=== PATIENT | female | born 1940 | race Hispanic/Latino ===

== ENCOUNTER 2019-07-17 16:40 | Inpatient (IN) | payer OTHER ==
[~2019-07-17] VITALS: Ht 149.9 cm; Wt 74.8 kg
[2019-07-17] MEDS ORDERED: FUROSEMIDE 10 MG/ML 2ML VIAL ONE (17:11)
[2019-07-17] MEDS ORDERED: FUROSEMIDE 10 MG/ML 4ML VIAL ONE (17:12)
[2019-07-17 17:14] LABS: BASOPHILS % (AUTO) 0.1 % (0.0-5.0); HEMATOCRIT 36.5 % (36-48); LYMPHOCYTES % (AUTO) 2.6 % (21.0-51.0); MEAN CORPUSCULAR HEMOGLOBIN 27.9 pg (27.0-33.0); MEAN CORPUSCULAR HGB CONC 32.3 g/dL (32.0-36.0); MEAN CORPUSCULAR VOLUME 86.3 fL (79-99); MONOCYTES % (AUTO) 7.2 % (3.0-13.0); NEUTROPHILS % (AUTO) 89.6 % (40.0-77.0); PLATELET COUNT (AUTO) 327 K/uL (130-400); RED BLOOD CELL COUNT(AUTO) 4.23 MIL/uL (4.00-5.50); RED CELL DISTRIBUTION WIDTH 15.8 % (11.0-15.5); WHITE BLOOD COUNT (AUTO) 18.7 K/uL (4.8-10.8)
[2019-07-17 17:28] LABS: CREATININE 0.8 mg/dL (0.5-1.5); POTASSIUM 4.6 mmol/L (3.5-5.1)
[2019-07-17 17:32] LABS: ALBUMIN 2.4 g/dL (3.5-5.0); BILIRUBIN,TOTAL 0.3 mg/dL (0.2-1.0); TOTAL PROTEIN, SERUM 7.2 g/dL (6.0-8.3)
[2019-07-17 18:59] LABS: B-TYPE NATRIURETIC PEPTIDE 79 pg/mL (0-100)
[2019-07-17] MEDS ORDERED: LORAZEPAM 2 MG/ML 1 ML VIAL ONE (19:40)
[2019-07-17] MEDS ORDERED: IOHEXOL-350 75 ML VIAL IV ONE (20:34)
[2019-07-17 21:10] LABS: APPEARANCE,URINE SL CLOUDY (CLEAR); BILIRUBIN,URINE NEGATIVE (NEGATIVE); COLOR,URINE YELLOW (YELLOW); GLUCOSE, URINE (UA) >=1000 mg/dL (NEGATIVE); KETONES,URINE NEGATIVE (NEGATIVE); LEUKOCYTE ESTERASE ,URINE NEGATIVE (NEGATIVE); NITRATE,URINE NEGATIVE (NEGATIVE); OCCULT BLOOD,URINE TRACE-INTACT (NEGATIVE); PH,URINE 6.5 (5.0-8.0); PROTEIN,URINE TRACE mg/dL (NEGATIVE); UROBILINOGEN,URINE 0.2 mg/dL (0.2-1.0)
[2019-07-17 21:21] LABS: BACTERIA,URINE Rare /HPF (None Seen); RBC,URINE 0-1 /HPF (0-1); WBC,URINE 0-1 /HPF (0-1)
[2019-07-17 21:22] LABS: SQUAMOUS EPITHELIAL CELL,UR Rare /HPF (0-2)
[2019-07-17] MEDS ORDERED: AZITHROMYCIN 500MG+NS 250ML 250 ML IV ONE (21:29)
[2019-07-17] MEDS ORDERED: CEFTRIAXONE SODIUM 1 GM ONE (21:30)
[2019-07-17] MEDS ORDERED: ONDANSETRON HCL 4 MG/2 ML VIAL IVP PRN (22:45)
--- NOTE | 2019-07-17 23:45 | NUR ---
Admission note: Received pt from ER per stretcher. Looking weak , but responsive. AOX3. Placed in bed comfortably with HOBE. Not in respiratory distress, but continuously attached to O2 at 2LPM via NC as she has tendency to desat once removed from O2. O2Sat at 92% this time. VS checked and recorded. Assessment done. (See CPOE flow chart for full assessment). Oriented to room and used of call light. Policies and procedures explained. Verbalized understanding. Has 2 IV sites: RW #20 g ,SL and LAC #20 g , SL - patent and intact. Has FC # 16 Fr, attached to urobag draining dark caden colored urine. Hooked to TELE at bedside with ST result 100's. Plan of care initiated. Home meds resumed as ordered. Pt meds at bedside. Needs attended and cared for. Monitored and observed for any unusual changes. Distress / discomfort not noted. Reported to AM shift accordingly.
[2019-07-18] VITALS (20 sets, daily range): BP systolic 86–128; BP diastolic 41–56
[2019-07-18] MEDS ORDERED: SERT50TA12 PO (00:06)
[2019-07-18] MEDS ORDERED: DICL50TA9 PO (00:06)
[2019-07-18] MEDS ORDERED: DESL5TAB45 PO (00:06)
[2019-07-18] MEDS ORDERED: LISI2.5T2 PO (00:06)
[2019-07-18] MEDS ORDERED: TRAZ-185 PO (00:06)
[2019-07-18] MEDS ORDERED: CARV6.25 PO (00:06)
[2019-07-18] MEDS ORDERED: DICY10CA13 PO (00:06)
[2019-07-18] MEDS ORDERED: ATOR40TA69 PO (00:06)
[2019-07-18] MEDS ORDERED: ASPI-1146 PO (00:06)
[2019-07-18] MEDS ORDERED: MULT-1250 PO (00:06)
[2019-07-18] MEDS ORDERED: GABA-531 PO (00:06)
[2019-07-18] MEDS ORDERED: EMPA10TA PO (00:06)
[2019-07-18] MEDS: IPRATROPIUM/ALBUTEROL SULFATE 3 ML SOLUTION IH PRN ×4 (00:24→22:41)
[2019-07-18 04:13] LABS: HEMATOCRIT 33.3 % (36-48); MEAN CORPUSCULAR HEMOGLOBIN 28.1 pg (27.0-33.0); MEAN CORPUSCULAR HGB CONC 31.2 g/dL (32.0-36.0); PLATELET COUNT (AUTO) 300 K/uL (130-400); RED CELL DISTRIBUTION WIDTH 15.9 % (11.0-15.5); WHITE BLOOD COUNT (AUTO) 17.1 K/uL (4.8-10.8)
[2019-07-18 04:29] LABS: CREATININE 0.9 mg/dL (0.5-1.5); MAGNESIUM 2.1 mg/dL (1.80-2.40); PHOSPHORUS 5.2 mg/dL (2.5-4.9); POTASSIUM 3.9 mmol/L (3.5-5.1)
[2019-07-18] MEDS: DICYCLOMINE HCL 20 MG TAB PO SCH ×3 (09:00→16:17)
[2019-07-18] MEDS ORDERED: LISINOPRIL 2.5 MG TABLET PO SCH (09:00)
[2019-07-18] MEDS ORDERED: CARVEDILOL 6.25 MG TABLET PO SCH (09:00)
[2019-07-18] MEDS: EMPAGLIFLOZIN 10 MG PO SCH (09:00)
[2019-07-18] MEDS ORDERED: CEFTRIAXONE SODIUM 1 GM IVP SCH (09:00)
[2019-07-18] MEDS ORDERED: AZITHROMYCIN 500MG+NS 250ML 250 ML IV SCH (09:00)
[2019-07-18] MEDS: DICLOFENAC SODIUM 50 MG PO SCH (09:00)
[2019-07-18] MEDS: ACETAMINOPHEN 325 MG TAB PO PRN ×2 (10:42→22:10)
[2019-07-18] MEDS: LORATADINE 10 MG TABLET PO SCH (10:43)
[2019-07-18] MEDS: MULTIVITAMIN WITH MINERALS TABLET PO SCH (10:43)
[2019-07-18] MEDS: SERTRALINE HCL 50 MG TABLET PO SCH (10:45)
[2019-07-18] MEDS: ASPIRIN 81MG TAB.CHEW PO SCH (10:46)
[2019-07-18] MEDS: GABAPENTIN 300 MG CAPSULE PO SCH ×3 (10:59→21:39)
[2019-07-18 11:28] LABS: INR 0.92 (0.85-1.15); PARTIAL THROMBOPLASTIN TIME 26.3 SEC (26.3-35.5)
[2019-07-18] MEDS ORDERED: FUROSEMIDE 10 MG/ML 4ML VIAL IV SCH (12:15)
--- NOTE | 2019-07-18 14:45 | NUR ---
U/S GD PARACENTESIS PROCEDURE PERFORMED BY DR Konrad WALKER. PUNCTURE SITE RLQ AND PATIENT TOLERATED PROCEDURE WELL. TOTAL REMOVED 2 LITERS OF DARK ABMER COLORED FLUID. END OF PROCEDURE AT 1425. CATHETER REMOVED AND DRESSING APPLIED. NO BLEEDING NOTED. REPORT GIVEN TO Zeferino LANDERS RN AND PATIENT TRANSPORTED TO [facility] VIA BED AT 1445. AAO X3 WITH NO C/O PAIN. SPECIMEN SENT TO LAB.
--- NOTE | 2019-07-18 14:50 | NUR ---
RECEIVED PT PT LETHARGIC YET AROUSABLE TO VERBAL STIMULI. AAO. PT WITH HYPOTENSION BP=77/44 HR=84. @1500, CALLED NABIL BEE. ORDERS TO ADMINSITER ALBUMIN X3 DOSES Q8RS. @1516 NOTIFIED COLLEEN OF ALBUMIN ORDER NOT MEET CRITERIA PARACENTESIS WITH 2LITERS REMOVED. CONTINUED TO MONITOR. BP MAINTAINED SBP=98/55 WITH LOW SPB=87 @1617, NOTIFIED OF PATIENT 02 SAT DROPPING WHEN DEEP SLEEP OF 84% AND WHEN AROUSED 02 SAT=95% NEW ORDERS RECEIVED AND CARRIED OUT. PT PLACED ON BIPAP AFTER ABG RESULTS. PT TRANSFERRED TO ICU @1700 REPORT GIVEN TO NEL LUGO PRIOR TO TRANSFER, VERBALIZED UNDERSTANDING. PT CONTINUED TO BE LETHARGIC YET AROUSABLE. Addendum: 07/18/19 at 2009 by MIRTA LANDERS RN *RECEIVED PATIENT POST PARACENTESIS
--- NOTE | 2019-07-18 15:27 | NUR ---
RD NOTIFICATION PT ADMITTED FOR CAP. HX OF DM, CHF. DIET ORDER HELD PENDING PROCEDURE. RECOMMEND RESUME DIET MEDICALLY FEASIBLE. RECOMMEND 500MG VITAMIN C BID. RD TO FOLLOW UP FOR NUTRITION EDUCATION. PLEASE NOTIFY ADDITIONAL NUTRITION CONCERNS ARISE. THANK YOU. Addendum: 07/18/19 at [address] Amended: Links added.
[2019-07-18 15:30] LABS: AMYLASE,BODY FLUID 19 U/L; LIPASE,BODY FLUID 48 U/L
[2019-07-18] MEDS ORDERED: MIDODRINE HCL 5 MG TABLET ONE (15:33)
[2019-07-18] MEDS: MIDODRINE HCL 5 MG TABLET PO SCH ×2 (15:37→21:39)
[2019-07-18 16:28] LABS: ABG HCO3 30.8 mmol/L (21.0-28.0); ABG OXYGEN SATURATION 91.3 % (95.0-99.0); ABG PCO2 67 mmHg (32-45)
[2019-07-18 16:29] LABS: SPECIMENTYPE,BODY FLUID ASCITES
[2019-07-18 16:30] LABS: APPEARANCE BODY FLUID CLOUDY (CLEAR); COLOR,BODY FLUID DARK YELLOW (LT YELLOW); TOTAL VOLUME,BODY FLUID 2000 mL
[2019-07-18] MEDS ORDERED: SODIUM CHLORIDE 0.9% 500ML 500 ML IV SCH (16:30)
[2019-07-18 16:31] LABS: BODY FLUID RBC 1430 /cu. mm.; BODY FLUID WBC 450 /cu. mm.
[2019-07-18 18:49] LABS: BF LYMPHOCYTE 22 %; BF OTHER CELLS 18
--- NOTE | 2019-07-18 20:11 | NUR ---
NOTIFIED RAN KAUFMAN, PT'S OF PTS STATUS ANDVTRANSFER TO ICU. PROVIDED WITH ICU PHONE NUMBER EXTENSION [phone]. PT FAMILY MEMBER VERY APPRECIATIVE VERBALIZED UNDERSTANDING.
[2019-07-18] MEDS: AZITHROMYCIN 500MG+NS 250ML 250 ML IV SCH (21:39)
[2019-07-18] MEDS: CEFTRIAXONE SODIUM 1 GM IVP SCH (21:39)
[2019-07-18] MEDS: TRAZODONE HCL 50 MG TAB PO SCH (21:39)
[2019-07-18] MEDS: ATORVASTATIN CALCIUM 40 MG TABLET PO SCH (21:39)
[2019-07-19] VITALS (33 sets, daily range): BP systolic 102–143; BP diastolic 45–66
[2019-07-19 04:25] LABS: BASOPHILS % (AUTO) 0.2 % (0.0-5.0); EOSINOPHILS % (AUTO) 0.2 % (0.0-8.0); HEMATOCRIT 34.7 % (36-48); LYMPHOCYTES % (AUTO) 4.3 % (21.0-51.0); MEAN CORPUSCULAR HEMOGLOBIN 27.9 pg (27.0-33.0); MEAN CORPUSCULAR HGB CONC 30.8 g/dL (32.0-36.0); MEAN CORPUSCULAR VOLUME 90.4 fL (79-99); MONOCYTES % (AUTO) 10.2 % (3.0-13.0); NEUTROPHILS % (AUTO) 84.8 % (40.0-77.0); PLATELET COUNT (AUTO) 247 K/uL (130-400); RED BLOOD CELL COUNT(AUTO) 3.84 MIL/uL (4.00-5.50); RED CELL DISTRIBUTION WIDTH 16.2 % (11.0-15.5); WHITE BLOOD COUNT (AUTO) 13.1 K/uL (4.8-10.8)
[2019-07-19 04:37] LABS: CREATININE 0.8 mg/dL (0.5-1.5); MAGNESIUM 2.2 mg/dL (1.80-2.40)
[2019-07-19] MEDS: GABAPENTIN 300 MG CAPSULE PO SCH ×3 (08:37→21:10)
[2019-07-19] MEDS: SERTRALINE HCL 50 MG TABLET PO SCH (08:37)
[2019-07-19] MEDS: ASPIRIN 81MG TAB.CHEW PO SCH (08:37)
[2019-07-19] MEDS: EMPAGLIFLOZIN 10 MG PO SCH (08:38)
[2019-07-19] MEDS: DICLOFENAC SODIUM 50 MG PO SCH (08:38)
[2019-07-19] MEDS: DICYCLOMINE HCL 20 MG TAB PO SCH ×3 (09:27→16:55)
[2019-07-19] MEDS: MULTIVITAMIN WITH MINERALS TABLET PO SCH (09:27)
[2019-07-19] MEDS: LORATADINE 10 MG TABLET PO SCH (09:27)
[2019-07-19] MEDS: MIDODRINE HCL 5 MG TABLET PO SCH ×3 (09:29→21:09)
[2019-07-19] MEDS: FUROSEMIDE 10 MG/ML 2ML VIAL IV SCH ×2 (14:33→20:04)
[2019-07-19] MEDS: CEFTRIAXONE SODIUM 1 GM IVP SCH (21:08)
[2019-07-19] MEDS: ATORVASTATIN CALCIUM 40 MG TABLET PO SCH (21:09)
[2019-07-19] MEDS: TRAZODONE HCL 50 MG TAB PO SCH (21:09)
[2019-07-19] MEDS: CARVEDILOL 3.125 MG TABLET PO SCH (21:09)
[2019-07-19] MEDS: AZITHROMYCIN 500MG+NS 250ML 250 ML IV SCH (21:50)
[2019-07-19 23:13] LABS: CREATINE KINASE, TOTAL 93 U/L (21-232); MYOGLOBIN 153 ng/mL (10-92); TROPONIN I < 0.04 ng/mL (0.00-0.06)
[2019-07-20] VITALS (15 sets, daily range): BP systolic 100–153; BP diastolic 49–72
[2019-07-20] MEDS: FUROSEMIDE 10 MG/ML 2ML VIAL IV SCH ×4 (02:25→19:13)
[2019-07-20 03:48] LABS: BASOPHILS % (AUTO) 0.1 % (0.0-5.0); EOSINOPHILS % (AUTO) 0.6 % (0.0-8.0); HEMATOCRIT 35.7 % (36-48); MEAN CORPUSCULAR HEMOGLOBIN 27.8 pg (27.0-33.0); MEAN CORPUSCULAR HGB CONC 30.8 g/dL (32.0-36.0); MEAN CORPUSCULAR VOLUME 90.4 fL (79-99); MONOCYTES % (AUTO) 10.2 % (3.0-13.0); NEUTROPHILS % (AUTO) 83.6 % (40.0-77.0); PLATELET COUNT (AUTO) 258 K/uL (130-400); RED BLOOD CELL COUNT(AUTO) 3.95 MIL/uL (4.00-5.50); RED CELL DISTRIBUTION WIDTH 15.9 % (11.0-15.5); WHITE BLOOD COUNT (AUTO) 12.1 K/uL (4.8-10.8)
[2019-07-20 04:08] LABS: ALANINE AMINOTRANSFERASE 29 U/L (12-78); ALBUMIN 1.8 g/dL (3.5-5.0); ASPARTATE AMINOTRANSFERASE 52 U/L (10-37); BILIRUBIN,TOTAL 0.1 mg/dL (0.2-1.0); CARBON DIOXIDE 40 mmol/L (21-32); CHLORIDE 105 mmol/L (101-111); CREATININE 0.9 mg/dL (0.5-1.5); GLOMERULAR FILTR. RATE CALC 65 mL/min (>60); GLUCOSE,RANDOM 137 mg/dL (70-105); POTASSIUM 3.7 mmol/L (3.5-5.1); SODIUM SERUM 145 mmol/L (136-145); TOTAL PROTEIN, SERUM 6.1 g/dL (6.0-8.3); UREA NITROGEN, BLOOD 25 mg/dL (7-18)
[2019-07-20 04:09] LABS: AMMONIA < 10 umol/L (11-32)
[2019-07-20 04:24] LABS: ABG BASE EXCESS 8.5 mmol/L (-2.0-3.0); ABG HCO3 36.1 mmol/L (21.0-28.0); ABG OXYGEN SATURATION 95.9 % (95.0-99.0); ABG PCO2 62 mmHg (32-45)
[2019-07-20 04:26] LABS: B-TYPE NATRIURETIC PEPTIDE 57 pg/mL (0-100)
--- NOTE | 2019-07-20 04:58 | NUR ---
BIPAP ADJUSTMENT ABG done as per order this am, pCO2 at 62.3, RT adjusted the bipap rate up to 16 from 10, will continue to monitor pt's response.
--- NOTE | 2019-07-20 06:48 | NUR ---
PATIENT UPDATE Pt slept well overnight, anxious at the beginning of the shift, always asking to be repositioned in the bed. Will request to be service writer advisor up higher in the bed when she's already at it. Breath sounds diminished, continues on the bipap at 10/5 with fio2 at 40%, rate originally was at 10 but was adjusted to 16 bec of the elevated co2 fr the abg. Abdomen firm and distended, no complaints of abdominal pain, no nausea and vomiting. Diuresing well with the lasix 20mg iv given q 6hrs, with almost 2 liters of urine output from the last 12 hrs. Blood sugars within normal limits. No complaints of chest pain, running nsr in the 80's to 90's and goes up to the 110's trina when she starts getting anxious, normotensive- on midodrine tid.
[2019-07-20] MEDS: SERTRALINE HCL 50 MG TABLET PO SCH (08:35)
[2019-07-20] MEDS: LORATADINE 10 MG TABLET PO SCH (08:35)
[2019-07-20] MEDS: DICYCLOMINE HCL 20 MG TAB PO SCH (08:35)
[2019-07-20] MEDS: ASPIRIN 81MG TAB.CHEW PO SCH (08:35)
[2019-07-20] MEDS: CARVEDILOL 3.125 MG TABLET PO SCH ×2 (08:35→21:16)
[2019-07-20] MEDS: MIDODRINE HCL 5 MG TABLET PO SCH ×3 (08:36→21:00)
[2019-07-20] MEDS: MULTIVITAMIN WITH MINERALS TABLET PO SCH (08:36)
[2019-07-20] MEDS: GABAPENTIN 300 MG CAPSULE PO SCH ×3 (08:36→21:16)
[2019-07-20] MEDS: DICLOFENAC SODIUM 50 MG PO SCH (08:36)
[2019-07-20] MEDS: EMPAGLIFLOZIN 10 MG PO SCH (08:36)
[2019-07-20 11:26] LABS: CREATINE KINASE, TOTAL 159 U/L (21-232); MYOGLOBIN 169 ng/mL (10-92); TROPONIN I < 0.04 ng/mL (0.00-0.06)
--- NOTE | 2019-07-20 14:57 | NUR ---
REPORT CALLED TO RICCO ON 3RD FLOOR AT 1440, INFORMED OF PENDING ECHO AND BIOPSY AND BIPAP ORDER. PATIENT TAKEN VIA WHEELCHAIR TO 322 ON TELEPACK WITH ALL BELONGINGS. PATIENT IN STABLE CONDITION, DENIES NEEDS.
[2019-07-20 16:07] LABS: CREATINE KINASE, TOTAL 169 U/L (21-232); MYOGLOBIN 149 ng/mL (10-92); TROPONIN I < 0.04 ng/mL (0.00-0.06)
[2019-07-20] MEDS ORDERED: SODIUM CHLORIDE 0.9% 250 ML IV ONE (21:11)
[2019-07-20] MEDS: TRAZODONE HCL 50 MG TAB PO SCH (21:14)
[2019-07-20] MEDS: CEFTRIAXONE SODIUM 1 GM IVP SCH (21:14)
[2019-07-20] MEDS: ATORVASTATIN CALCIUM 40 MG TABLET PO SCH (21:14)
[2019-07-20] MEDS: AZITHROMYCIN 500MG+NS 250ML 250 ML IV SCH (21:14)
[2019-07-21] VITALS (7 sets, daily range): BP systolic 110–136; BP diastolic 57–84
[2019-07-21] MEDS: FUROSEMIDE 10 MG/ML 2ML VIAL IV SCH ×4 (01:17→17:19)
[2019-07-21 03:45] LABS: ABG HCO3 34.1 mmol/L (21.0-28.0); ABG OXYGEN SATURATION 95.1 % (95.0-99.0); ABG PCO2 59 mmHg (32-45)
[2019-07-21] MEDS: ACETAMINOPHEN 325 MG TAB PO PRN (03:50)
[2019-07-21 05:33] LABS: BASOPHILS % (AUTO) 0.1 % (0.0-5.0); EOSINOPHILS % (AUTO) 0.6 % (0.0-8.0); HEMATOCRIT 33.1 % (36-48); LYMPHOCYTES % (AUTO) 4.8 % (21.0-51.0); MEAN CORPUSCULAR HGB CONC 31.4 g/dL (32.0-36.0); MONOCYTES % (AUTO) 10.5 % (3.0-13.0); NEUTROPHILS % (AUTO) 83.7 % (40.0-77.0); PLATELET COUNT (AUTO) 209 K/uL (130-400); RED BLOOD CELL COUNT(AUTO) 3.72 MIL/uL (4.00-5.50); RED CELL DISTRIBUTION WIDTH 15.8 % (11.0-15.5); WHITE BLOOD COUNT (AUTO) 9.3 K/uL (4.8-10.8)
[2019-07-21 06:08] LABS: ALBUMIN 1.7 g/dL (3.5-5.0); BILIRUBIN,TOTAL 0.2 mg/dL (0.2-1.0); CREATININE 0.8 mg/dL (0.5-1.5); MAGNESIUM 2.7 mg/dL (1.80-2.40); POTASSIUM 3.4 mmol/L (3.5-5.1); THYROID STIMULATING HORMONE 0.23 uIU/mL (0.36-3.74); TOTAL PROTEIN, SERUM 5.7 g/dL (6.0-8.3)
[2019-07-21] MEDS: GABAPENTIN 300 MG CAPSULE PO SCH ×3 (09:08→20:50)
[2019-07-21] MEDS: CARVEDILOL 3.125 MG TABLET PO SCH ×2 (09:09→20:51)
[2019-07-21] MEDS: SERTRALINE HCL 50 MG TABLET PO SCH (09:09)
[2019-07-21] MEDS: LORATADINE 10 MG TABLET PO SCH (09:10)
[2019-07-21] MEDS: MULTIVITAMIN WITH MINERALS TABLET PO SCH (09:10)
[2019-07-21] MEDS: ASPIRIN 81MG TAB.CHEW PO SCH (09:10)
[2019-07-21] MEDS: MIDODRINE HCL 5 MG TABLET PO SCH ×3 (09:11→21:00)
[2019-07-21] MEDS: DICLOFENAC SODIUM 50 MG PO SCH (09:20)
[2019-07-21] MEDS: EMPAGLIFLOZIN 10 MG PO SCH (09:20)
--- NOTE | 2019-07-21 10:16 | NUR ---
DR. CASTAÑEDA IN TO SEE PT.STATES IF REFUSES BX. OF OMENTUM MASS TO REFER HER TO HOSPICE.
--- NOTE | 2019-07-21 14:04 | NUR ---
DR. PACK IN TO SEE PT. OK TO START Kt PROTOCOL.
[2019-07-21] MEDS ORDERED: POTASSIUM CHLORIDE 20MEQ/100ML 100 ML IV PRN (16:45)
[2019-07-21] MEDS ORDERED: POTASSIUM CHLORIDE 10% ELIXIR 20 MEQ/15 ML UDCUP PO PRN (16:45)
[2019-07-21] MEDS: POTASSIUM CHLORIDE 20 MEQ ERTAB PO PRN (17:18)
[2019-07-21] MEDS: CEFTRIAXONE SODIUM 1 GM IVP SCH (20:47)
[2019-07-21] MEDS: ATORVASTATIN CALCIUM 40 MG TABLET PO SCH (20:50)
[2019-07-21] MEDS: TRAZODONE HCL 50 MG TAB PO SCH (20:50)
[2019-07-21] MEDS: AZITHROMYCIN 500MG+NS 250ML 250 ML IV SCH (20:50)
[2019-07-21] MEDS ORDERED: ALPRAZOLAM 0.25 MG TABLET PO ONE (22:15)
[2019-07-21] MEDS ORDERED: ALPRAZOLAM 0.25 MG TABLET ONE (23:27)
[2019-07-22] MEDS: FUROSEMIDE 10 MG/ML 2ML VIAL IV SCH ×2 (01:02→06:30)
[2019-07-22] MEDS ORDERED: ALPRAZOLAM 0.25 MG TABLET ONE (02:44)
[2019-07-22] MEDS: POTASSIUM CHLORIDE 20 MEQ ERTAB PO PRN (02:46)
[2019-07-22 03:48] VITALS: BP 128/65
[2019-07-22 05:35] LABS: MEAN CORPUSCULAR HEMOGLOBIN 27.3 pg (27.0-33.0); MEAN CORPUSCULAR HGB CONC 30.6 g/dL (32.0-36.0); MEAN CORPUSCULAR VOLUME 89.3 fL (79-99); PLATELET COUNT (AUTO) 206 K/uL (130-400); RED BLOOD CELL COUNT(AUTO) 4.03 MIL/uL (4.00-5.50); RED CELL DISTRIBUTION WIDTH 15.8 % (11.0-15.5); WHITE BLOOD COUNT (AUTO) 10.6 K/uL (4.8-10.8)
[2019-07-22 06:01] LABS: CREATININE 0.7 mg/dL (0.5-1.5); POTASSIUM 3.7 mmol/L (3.5-5.1)
[2019-07-22 08:00] VITALS: BP 126/52
[2019-07-22] MEDS: GABAPENTIN 300 MG CAPSULE PO SCH ×3 (09:00→21:00)
[2019-07-22] MEDS: ASPIRIN 81MG TAB.CHEW PO SCH (09:00)
[2019-07-22] MEDS: DICLOFENAC SODIUM 50 MG PO SCH (09:00)
[2019-07-22] MEDS: EMPAGLIFLOZIN 10 MG PO SCH (09:00)
[2019-07-22] MEDS: CARVEDILOL 3.125 MG TABLET PO SCH ×2 (09:00→21:22)
[2019-07-22] MEDS: SERTRALINE HCL 50 MG TABLET PO SCH (09:00)
[2019-07-22] MEDS: LORATADINE 10 MG TABLET PO SCH (09:00)
[2019-07-22] MEDS: MULTIVITAMIN WITH MINERALS TABLET PO SCH (09:00)
--- NOTE | 2019-07-22 09:25 | NUR ---
PROCEDURE PATIENT SCHEDULED FOR OMENTUM BIOPSY BY IR. IMAGES REVIEWED BY DR Corrine VELÁSQUEZ. PROCEDURE CANCELED BY IR. NO HETEROGENEOUS MASS TO BIOPSY AND BOWEL LOOPS PRESENT AROUND THE AREA OF INTEREST. PROCEDURE OUTCOME REPORTED TO NEL VAZQUEZ
[2019-07-22 12:00] VITALS: BP 121/69
[2019-07-22] MEDS: MIDODRINE HCL 5 MG TABLET PO SCH ×2 (15:12→21:22)
[2019-07-22 16:00] VITALS: BP 129/56
[2019-07-22 20:00] VITALS: BP 129/63
[2019-07-22] MEDS: TRAZODONE HCL 50 MG TAB PO SCH (21:20)
[2019-07-22] MEDS: ATORVASTATIN CALCIUM 40 MG TABLET PO SCH (21:20)
[2019-07-22] MEDS: CEFTRIAXONE SODIUM 1 GM IVP SCH (21:22)
[2019-07-22] MEDS: AZITHROMYCIN 500MG+NS 250ML 250 ML IV SCH (21:28)
[2019-07-23] VITALS (7 sets, daily range): BP systolic 109–137; BP diastolic 51–64
[2019-07-23] MEDS: HYDROMORPHONE HCL 0.5 MG/0.5 ML ML IVP PRN ×2 (04:25→21:37)
[2019-07-23 05:32] LABS: HEMATOCRIT 37.3 % (36-48); MEAN CORPUSCULAR HEMOGLOBIN 27.3 pg (27.0-33.0); PLATELET COUNT (AUTO) 206 K/uL (130-400); RED CELL DISTRIBUTION WIDTH 15.8 % (11.0-15.5); WHITE BLOOD COUNT (AUTO) 11.3 K/uL (4.8-10.8)
[2019-07-23 05:54] LABS: CREATININE 0.8 mg/dL (0.5-1.5); POTASSIUM 3.8 mmol/L (3.5-5.1)
[2019-07-23] MEDS: SERTRALINE HCL 50 MG TABLET PO SCH (08:45)
[2019-07-23] MEDS: LORATADINE 10 MG TABLET PO SCH (08:46)
[2019-07-23] MEDS: CARVEDILOL 3.125 MG TABLET PO SCH ×2 (08:46→20:48)
[2019-07-23] MEDS: MULTIVITAMIN WITH MINERALS TABLET PO SCH (08:46)
[2019-07-23] MEDS: ASPIRIN 81MG TAB.CHEW PO SCH (08:47)
[2019-07-23] MEDS: MIDODRINE HCL 5 MG TABLET PO SCH ×3 (08:48→20:49)
[2019-07-23] MEDS: EMPAGLIFLOZIN 10 MG PO SCH (08:50)
[2019-07-23] MEDS: DICLOFENAC SODIUM 50 MG PO SCH (08:51)
[2019-07-23] MEDS: GABAPENTIN 300 MG CAPSULE PO SCH ×3 (08:58→20:48)
[2019-07-23] MEDS: ACETAMINOPHEN 325 MG TAB PO PRN (09:01)
--- NOTE | 2019-07-23 10:01 | NUR ---
SEEN BY NABIL CERVANTES (BENCHMARK). NEW ORDERS AWAITED.
--- NOTE | 2019-07-23 14:55 | NUR ---
INITIAL SW spoke with patient's spouse, Sharan Robertson, [phone]. Patient lives with spouse. no home services. DME: walker with seat, BPM, glucometer (uses insulin), shower chair. Patient is able to complete ADL's independently but does not drive. PCP is Dr. Ganga Owusu. Pharmacy is [facility]. DCP is home. Addendum: 07/23/19 at 1457 by NAHOMY RUIZ SS Amended: Links added.
[2019-07-23] MEDS: CEFTRIAXONE SODIUM 1 GM IVP SCH (20:46)
[2019-07-23] MEDS: AZITHROMYCIN 500MG+NS 250ML 250 ML IV SCH (20:46)
[2019-07-23] MEDS: ATORVASTATIN CALCIUM 40 MG TABLET PO SCH (20:48)
[2019-07-23] MEDS: TRAZODONE HCL 50 MG TAB PO SCH (20:48)
--- NOTE | 2019-07-23 21:37 | NUR ---
PAIN Pt sitting on a chair,c/o pain to her right side,asking for iv pain med.Assisted back in bed,medicated with DIlaudid iv.
--- NOTE | 2019-07-23 22:37 | NUR ---
MED EFFECT Pt resting quietly in bed,respirations even and unlabored.No signs of pain.
--- NOTE | 2019-07-23 23:02 | NUR ---
FF UP Pt appears to be asleep,arousable,denies pain or discomfort.
[2019-07-24] MEDS: ACETAMINOPHEN 325 MG TAB PO PRN ×2 (01:19→08:47)
[2019-07-24 03:57] VITALS: BP 119/64
--- NOTE | 2019-07-24 05:25 | NUR ---
SITTING UP Pt assisted up on a chair,abdomen appears firm,distended.Pt denies sob.
[2019-07-24] MEDS: HYDROMORPHONE HCL 0.5 MG/0.5 ML ML IVP PRN ×2 (05:58→18:41)
[2019-07-24 07:30] VITALS: BP 130/62
[2019-07-24 07:58] LABS: HEMATOCRIT 36.7 % (36-48); MEAN CORPUSCULAR HEMOGLOBIN 27.2 pg (27.0-33.0); MEAN CORPUSCULAR VOLUME 90.6 fL (79-99); PLATELET COUNT (AUTO) 195 K/uL (130-400); RED BLOOD CELL COUNT(AUTO) 4.05 MIL/uL (4.00-5.50); RED CELL DISTRIBUTION WIDTH 15.6 % (11.0-15.5); WHITE BLOOD COUNT (AUTO) 11.9 K/uL (4.8-10.8)
[2019-07-24 08:17] LABS: CREATININE 0.7 mg/dL (0.5-1.5); POTASSIUM 4.2 mmol/L (3.5-5.1)
[2019-07-24] MEDS: ASPIRIN 81MG TAB.CHEW PO SCH (08:50)
[2019-07-24] MEDS: SERTRALINE HCL 50 MG TABLET PO SCH (08:50)
[2019-07-24] MEDS: LORATADINE 10 MG TABLET PO SCH (08:51)
[2019-07-24] MEDS: CARVEDILOL 3.125 MG TABLET PO SCH ×2 (08:53→19:29)
[2019-07-24] MEDS: MULTIVITAMIN WITH MINERALS TABLET PO SCH (08:53)
[2019-07-24] MEDS: MIDODRINE HCL 5 MG TABLET PO SCH ×3 (08:54→19:28)
[2019-07-24] MEDS: GABAPENTIN 300 MG CAPSULE PO SCH ×3 (08:55→19:28)
[2019-07-24] MEDS: DICLOFENAC SODIUM 50 MG PO SCH (08:56)
[2019-07-24] MEDS: EMPAGLIFLOZIN 10 MG PO SCH (08:57)
--- NOTE | 2019-07-24 10:13 | NUR ---
RD FOLLOW UP NOTE Pt tolerating 75gm CCD with no report of GI distress, Fair PO intake at 75%. Recommend Glucerna QD. Pt with MVI in place. Noted, RLE 2+ Edema. Recommend continue POC. RD to continue to monitor. Please notify as additional nutrition concerns arise. Thank you. Addendum: 07/24/19 at [address] Amended: Links added.
[2019-07-24 11:00] VITALS: BP 120/61
[2019-07-24 16:00] VITALS: BP 110/62
[2019-07-24] MEDS: ATORVASTATIN CALCIUM 40 MG TABLET PO SCH (19:28)
[2019-07-24] MEDS: AZITHROMYCIN 500MG+NS 250ML 250 ML IV SCH (19:28)
[2019-07-24] MEDS: CEFTRIAXONE SODIUM 1 GM IVP SCH (19:28)
[2019-07-24] MEDS: TRAZODONE HCL 50 MG TAB PO SCH (19:29)
[2019-07-24 20:00] VITALS: BP 126/64
[2019-07-24] MEDS: HYDROMORPHONE HCL 2 MG/ML VIAL IVP PRN (23:42)
[2019-07-25] VITALS: BP 135/65
[2019-07-25] MEDS: ACETAMINOPHEN 325 MG TAB PO PRN ×2 (03:40→09:34)
[2019-07-25] MEDS: HYDROMORPHONE HCL 2 MG/ML VIAL IVP PRN ×3 (04:22→20:55)
[2019-07-25 04:47] VITALS: BP 123/61
[2019-07-25 04:50] LABS: HEMATOCRIT 37.4 % (36-48); MEAN CORPUSCULAR HGB CONC 30.2 g/dL (32.0-36.0); MEAN CORPUSCULAR VOLUME 92.6 fL (79-99); PLATELET COUNT (AUTO) 214 K/uL (130-400); RED BLOOD CELL COUNT(AUTO) 4.04 MIL/uL (4.00-5.50); RED CELL DISTRIBUTION WIDTH 15.6 % (11.0-15.5); WHITE BLOOD COUNT (AUTO) 12.9 K/uL (4.8-10.8)
[2019-07-25 05:08] LABS: CREATININE 0.7 mg/dL (0.5-1.5); POTASSIUM 4.3 mmol/L (3.5-5.1)
[2019-07-25 07:30] VITALS: BP 117/56
[2019-07-25] MEDS: ASPIRIN 81MG TAB.CHEW PO SCH (08:45)
[2019-07-25] MEDS: MIDODRINE HCL 5 MG TABLET PO SCH ×3 (08:48→20:52)
[2019-07-25] MEDS: LORATADINE 10 MG TABLET PO SCH (08:48)
[2019-07-25] MEDS: GABAPENTIN 300 MG CAPSULE PO SCH ×3 (08:48→20:52)
[2019-07-25] MEDS: MULTIVITAMIN WITH MINERALS TABLET PO SCH (08:49)
[2019-07-25] MEDS: SERTRALINE HCL 50 MG TABLET PO SCH (08:50)
[2019-07-25] MEDS: DICLOFENAC SODIUM 50 MG PO SCH (08:51)
[2019-07-25] MEDS: EMPAGLIFLOZIN 10 MG PO SCH (08:52)
[2019-07-25] MEDS: CARVEDILOL 3.125 MG TABLET PO SCH ×2 (08:58→20:52)
[2019-07-25 11:00] VITALS: BP 125/76
[2019-07-25 16:00] VITALS: BP 148/61
--- NOTE | 2019-07-25 16:09 | NUR ---
CM NOTE/HOME OXYGEN HELEN FERRER CALLED REGARDING ORDER FOR HOME OXYGEN. PENDING DOCUMENTATION AND DIAGNOSIS THAT QUALIFIES FOR OXYGEN AT HOME. PENDING MD TO SIGN OXYGEN FORMS. PRIMARY NURSE, RICCO NEUMANN, MADE AWARE.
--- NOTE | 2019-07-25 20:13 | NUR ---
NOTE RECEIVED REPORT FROM MILADIS CHACKO, PATIENT IS PENDING SET OF O2 AT HOME. PUTTYING AND CALKING SUPERVISOR WORKING ON THAT. ALSO MENTIONED SHE WILL NEED ANOTHER EVALUATION TOMORROW WITH RT THE LAST WILL BE MORE THAN 24 HRS SINCE DONE. WILL DO BLADDER TRAINING TONIGHT AND EXPECTING D/C ORDERS FOR BUNN FROM TOMORROW.
[2019-07-25] MEDS: ATORVASTATIN CALCIUM 40 MG TABLET PO SCH (20:51)
[2019-07-25] MEDS: TRAZODONE HCL 50 MG TAB PO SCH (20:52)
[2019-07-25] MEDS: AZITHROMYCIN 500MG+NS 250ML 250 ML IV SCH (20:53)
[2019-07-25] MEDS: CEFTRIAXONE SODIUM 1 GM IVP SCH (20:53)
[2019-07-25 20:54] VITALS: BP 135/65
[2019-07-26 00:24] VITALS: BP 117/69
[2019-07-26] MEDS: HYDROMORPHONE HCL 2 MG/ML VIAL IVP PRN (03:10)
[2019-07-26 04:00] VITALS: BP 134/69
--- NOTE | 2019-07-26 06:15 | NUR ---
ACTIVITY PATIENT OOB TO CHAIR.
[2019-07-26] MEDS: ACETAMINOPHEN 325 MG TAB PO PRN (06:41)
--- NOTE | 2019-07-26 06:45 | NUR ---
NOTE PATIENT MEDICATED FOR ABDOMINAL PAIN WITH TYLENOL. SAT UP TO BEDSIDE COMMODE. HAD A VERY SMALL AMOUNT OF STOOL.
[2019-07-26 08:00] VITALS: BP 129/73
--- NOTE | 2019-07-26 08:15 | NUR ---
Per report by Sherif Pettit RN, discharge pending for oxygen use at home approval by insurance. Pending another O2 ambulation evaluation by respiratory. Continue with bladder training with matias catheter.
[2019-07-26] MEDS: DICLOFENAC SODIUM 50 MG PO SCH (09:00)
[2019-07-26] MEDS: EMPAGLIFLOZIN 10 MG PO SCH (09:00)
[2019-07-26] MEDS: CARVEDILOL 3.125 MG TABLET PO SCH (09:18)
[2019-07-26] MEDS: ASPIRIN 81MG TAB.CHEW PO SCH (09:19)
[2019-07-26] MEDS: SERTRALINE HCL 50 MG TABLET PO SCH (09:19)
[2019-07-26] MEDS: LORATADINE 10 MG TABLET PO SCH (09:19)
[2019-07-26] MEDS: MIDODRINE HCL 5 MG TABLET PO SCH ×2 (09:19→15:20)
[2019-07-26] MEDS: GABAPENTIN 300 MG CAPSULE PO SCH ×2 (09:19→15:20)
[2019-07-26] MEDS: MULTIVITAMIN WITH MINERALS TABLET PO SCH (09:20)
[2019-07-26] MEDS ORDERED: FURO20TA6 PO (11:42)
[2019-07-26 12:56] VITALS: BP 121/63
--- NOTE | 2019-07-26 13:25 | NUR ---
SOFI Note: [facility] pending approval CM faxed script, clinicals, O2 test to [facility], confirmation received. Pending approval and delivery at this time. pending to sign script, flagged in chart, will refax once signed. Shae SATURATOR TENDER aware. Primary nurse aware. CM to cont to follow up.
--- NOTE | 2019-07-26 14:46 | NUR ---
CM Note: [facility] pending O2 approval and delivery CM spoke to Sherri rendon/[facility], received request for home O2, aware dcp once approved. Currently working on request. Pt pending approval and delivery. Primary nurse aware. CM to cont to follow up.
--- NOTE | 2019-07-26 15:45 | NUR ---
Notified by case management that oxygen use at home was approved by insurance. [employer] Supervisor for DME to call once arrived to hospital to drop off oxygen tank. Once arrived, patient can be discharged.
[2019-07-26 16:05] VITALS: BP 98/58
--- NOTE | 2019-07-26 16:42 | NUR ---
CM Note: [facility] approval pending O2 portable delivery CM spoke to Gloria w/[facility], pt has approva for home Oxygen. Will deliver portable. Instructed Gloria to have rep call primary nurse Hien once in ED so that she can meet rep and picker and packer O2 to take to pt. Given Hien ext#[phone]. Shae COMPOUNDING AND FINISHING SUPERVISOR aware, verbalized will write DC order today. Primary nurse aware. CM to cont to follow up.
--- NOTE | 2019-07-26 17:00 | NUR ---
PIV removed to RFA, bleeding controlled, dressing applied. Discharge instructions, prescribed medications and follow up with Dr. Wooten reviewed. Patient verbalized understanding. Patient assisted to emergency entrance where spouse arrived with oxygen tank provided by [facility]. Patient winded from transfer from wheelchair to truck passenger seat, assisted by spouse and WORD PROCESSOR OPERATOR. Instructed patient to breath in through nose and out through mouth. Patient performed therapeutic breathing. Notified spouse that patient would benefit from lower vehicle when needing to be transported in future, and can increase oxygen level on tank if feeling short of breath from 3L. Instructed patient that if shortness of breath occurs at home without relief from increased levels of oxygen, needed to return to emergency department. Patient and spouse verbalized understanding.
--- NOTE | 2019-07-26 18:19 | NUR ---
Called [facility] to inquire of oxygen tank delivery as patient pending discharge. MEssage sent to rep Francisca Casanova, will call me back with info on ETA.
--- NOTE | 2019-07-26 18:28 | NUR ---
Spoke to rep Francisca for [facility]. Per Francisca, both home and portable oxygen units were delivered to the patient's house by mistake, rather than being delivered to hospital. Francisca will call vp delivery and us call back.
== END 2019-07-26 19:15 | disposition home or self-care (01) | DRG 374 ==
LOC: EDH 16:40 → EDHIP 22:02 → OBSVTOIN 22:02 → 3BH 23:20 → DAHIP 07-18 17:24 → 3DH 07-20 16:06
PROVIDERS: ADMIT Internal Medicine Critical Care Medicine; ATTEND Internal Medicine Critical Care Medicine
PROC: 0W9G3ZZ Drainage of Peritoneal Cavity, Percutaneous Approach (ICD-10-PCS; principal; 2019-07-18)
PROC: 5A09357 Assistance with Respiratory Ventilation, Less than 24 Consecutive Hours, Continuous Positive Airway Pressure (ICD-10-PCS; 2019-07-18)
PROC: 5A09357 Assistance with Respiratory Ventilation, Less than 24 Consecutive Hours, Continuous Positive Airway Pressure (ICD-10-PCS; 2019-07-19)
PROC: 5A09357 Assistance with Respiratory Ventilation, Less than 24 Consecutive Hours, Continuous Positive Airway Pressure (ICD-10-PCS; 2019-07-20)
DX: C48.1 Malignant neoplasm of specified parts of peritoneum (principal); J18.9 Pneumonia, unspecified organism; J96.01 Acute respiratory failure with hypoxia; E43 Unspecified severe protein-calorie malnutrition; R18.8 Other ascites; J91.8 Pleural effusion in other conditions classified elsewhere; E66.2 Morbid (severe) obesity with alveolar hypoventilation; E87.70 Fluid overload, unspecified; Z68.33 Body mass index [BMI] 33.0-33.9, adult; D64.9 Anemia, unspecified; E03.9 Hypothyroidism, unspecified; E11.9 Type 2 diabetes mellitus without complications; E27.9 Disorder of adrenal gland, unspecified; E78.5 Hyperlipidemia, unspecified; F32.9 Major depressive disorder, single episode, unspecified; F41.9 Anxiety disorder, unspecified; I10 Essential (primary) hypertension; K59.00 Constipation, unspecified; M48.00 Spinal stenosis, site unspecified; R62.7 Adult failure to thrive; I95.9 Hypotension, unspecified; Z79.899 Other long term (current) drug therapy
CPT/HCPCS: 36415; 36600; 49083; 71045; 71275; 74176; 80048; 80053; 81001; 82040; 82042; 82105; 82140; 82150; 82378; 82550; 82803; 82948; 83605; 83690; 83735; 83874; 83880; 84100; 84145; 84157; 84439; 84443; 84480; 84484; 85025; 85027; 85610; 85730; 86304; 87040; 87071; 87205; 87804; 88112; 88305; 88313; 88341; 88342; 89051; 93005; 93306; 93971; 94640; 94660; 94664; 94760; 97039; G0378; J0456; J0696; J1170; J1940; J2060; J7050; Q9967